=== PATIENT | male | born 1995 | race Caucasian/White ===

== ENCOUNTER 2024-12-27 17:42 | Emergency (ER) | payer OTHER ==
[~2024-12-27] VITALS: Ht 167.6 cm; Wt 74.7 kg
[2024-12-27 17:56] VITALS: BP 132/87; PULSE 86; O2SAT 98
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
[2024-12-27] MEDS: LIDOcaine 1% W/epiNEPHrine 1:100,000 20ml vial IJ ONE (19:03)
[2024-12-27] MEDS ORDERED: SULF1TAB49 PO (19:11)
[2024-12-27] MEDS ORDERED: IBUP-1986 PO (19:11)
[2024-12-27 19:25] VITALS: RESP 14
[2024-12-27] MEDS: ketorolac trometh 15mg/ml vial 15 MG/ML ML IM ONE (19:25)
[2024-12-27] MEDS: sulfamethoxazole/trimethoprim DS (800/160mg) tablet PO ONE (19:26)
[2024-12-27 19:41] VITALS: TEMP 97
== END 2024-12-27 19:47 | disposition home or self-care (01) ==
LOC: ER 17:43
DX: S71.131A Puncture wound without foreign body, right thigh, initial encounter (principal); Z79.899 Other long term (current) drug therapy; W22.8XXA Striking against or struck by other objects, initial encounter; Y93.89 Activity, other specified; Y92.89 Other specified places as the place of occurrence of the external cause; Y99.8 Other external cause status
CPT/HCPCS: 73552; 96372; 99284; J1885; A6258; A6446; A6449